=== PATIENT | female | born 1975 | race American Indian/Alaskan Native ===

== ENCOUNTER 2019-04-30 23:47 | Emergency (ER) | payer OTHER ==
[2019-05-01 00:49] VITALS: BP 119/76
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
[2019-05-01] MEDS ORDERED: PERCOCET 5/325 ONE (02:42)
[2019-05-01] MEDS ORDERED: IBUPROFEN ONE (02:42)
[2019-05-01] MEDS ORDERED: IBUPROFEN PO ONE (02:44)
[2019-05-01] MEDS ORDERED: PERCOCET 5/325 PO ONE (02:44)
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
== END 2019-05-01 03:40 | disposition home or self-care (01) ==
LOC: ED 23:47
DX: S39.012A Strain of muscle, fascia and tendon of lower back, initial encounter (principal); I10 Essential (primary) hypertension; K21.9 Gastro-esophageal reflux disease without esophagitis; M19.90 Unspecified osteoarthritis, unspecified site; Z88.1 Allergy status to other antibiotic agents; Z88.6 Allergy status to analgesic agent; Z79.899 Other long term (current) drug therapy; V49.49XA Driver injured in collision with other motor vehicles in traffic accident, initial encounter; Y93.89 Activity, other specified; Y92.89 Other specified places as the place of occurrence of the external cause; Y99.8 Other external cause status
CPT/HCPCS: 72100; 99283